=== PATIENT | female | born 1955 | race Caucasian/White ===

== ENCOUNTER 2017-09-20 12:12 | Inpatient (IN) | payer OTHER ==
[~2017-09-20] VITALS: Ht 172.7 cm; Wt 63.0 kg
[~2017-09-20 12:12] MED LIST: ALDACTONE25 MG PO; ALDACTONE50 MG PO; AMBIEN10 M1 PO; AMBIEN10 MG PO; AMITRIPTYLINE H50 MG PO; ATIVAN1 M1 PO; BENTYL10 MG PO; BENTYL20 MG PO; ELAVIL50 MG PO; ERGOCALCIF50000 UNIT PO; ESTRACE0.5 MG PO; ESTRADIOL0.5 MG PO; KLOR-CON M2020 MEQ; KLOR-CON M2020 MEQ PO; LEXAPRO20 MG PO; LOMOTIL TABLET1 EACH PO; LORAZEPAM1 MG PO; MAG-OXIDE400 MG PO; OMEPRAZOLE40 M1 PO; PERCOCET 7.51 TABLET PO; PHENERGAN12.5 M1 PO; POTASSIUM CITR10 MEQ PO; PRILOSEC40 MG PO; PROAIR HFA8.5 GM IH; PROMETHAZINE HC25 M1 PO
[2017-09-20 12:33] LABS: HEMATOCRIT 51.3 % (36.0-46.0); MCH 34.3 PG (29.0-34.0); MCHC 36.5 G/DL (30.0-36.0); MCV 94.1 FL (83-99); MEAN PLAT.VOLUME 10.5 uM^3 (9.5-12.4); PLATELET COUNT 207 K/uL (156-360); RBC DIS.WIDTH-CV 13.5 % (11.8-14.6); RBC DIS.WIDTH-SD 47.3 % (39-53); RED BLOOD COUNT 5.45 M/uL (3.80-5.20)
[2017-09-20 12:42] LABS: CHLORIDE 101 mEq/L (99-109); SODIUM 132 mEq/L (136-147)
[2017-09-20 12:45] LABS: GLUCOSE 159 mg/dL (70-99)
[2017-09-20 12:46] LABS: ANION GAP 24 MEQ/L (2-14)
[2017-09-20 12:47] LABS: TOTAL BILIRUBIN 0.5 mg/dL (0.0-1.0)
[2017-09-20 12:48] LABS: ALKALINE PHOSPHATASE 83 IU/L (3-129); GFR ESTIMATE (CALCULATED) 14 mL/min/
[2017-09-20 12:49] LABS: UREA NITROGEN (BUN) 42 mg/dL (9-23)
[2017-09-20 12:52] LABS: LIPASE 34 U/L (1.0-51.0)
[2017-09-20 12:59] LABS: POTASSIUM 2.2 mEq/L (3.7-5.4)
[2017-09-20 14:13] LABS: MAGNESIUM 1.5 mg/dL (1.3-2.7)
[2017-09-20 17:10] VITALS: BP 149/78
[2017-09-20 17:54] VITALS: BP 149/78
[2017-09-20 19:01] LABS: ANION GAP 15 MEQ/L (2-14); CHLORIDE 109 MEQ/L (99-109); GFR ESTIMATE (CALCULATED) 18 mL/min/; GLUCOSE 127 mg/dL (70-99); POTASSIUM 2.3 MEQ/L (3.7-5.4); SAMPLE HEMOLYSIS CHECK 0; SAMPLE ICTERIC CHECK 0; SAMPLE LIPEMIA CHECK 0; SODIUM 135 MEQ/L (136-147); UREA NITROGEN (BUN) 37 mg/dL (9-23)
[2017-09-20 20:54] LABS: ANION GAP 14 MEQ/L (2-14); CHLORIDE 108 MEQ/L (99-109); GFR ESTIMATE (CALCULATED) 18 mL/min/; GLUCOSE 131 mg/dL (70-99); POTASSIUM 2.4 MEQ/L (3.7-5.4); SAMPLE HEMOLYSIS CHECK 0; SAMPLE ICTERIC CHECK 0; SAMPLE LIPEMIA CHECK 0; SODIUM 134 MEQ/L (136-147); UREA NITROGEN (BUN) 36 mg/dL (9-23)
[2017-09-21] VITALS (7 sets, daily range): BP systolic 97–133; BP diastolic 62–86
[2017-09-21 06:54] LABS: BASOPHIL COUNT 0.1 K/uL (0-0.1); EOSINOPHIL (%) 0.6 % (0-5); EOSINOPHIL COUNT 0.1 K/uL (0-0.3); HEMATOCRIT 39.9 % (36.0-46.0); IMMATURE GRANULOCYTE (%) 0.6 % (0.0-0.7); IMMATURE GRANULOCYTE COUNT 0.1 K/uL; INSTRUMENT ABS NEUTROPHIL CT 6.7 K/uL; LYMPHOCYTE COUNT 1.2 K/uL (1.0-2.8); MCH 33.7 PG (29.0-34.0); MCHC 35.1 G/DL (30.0-36.0); MCV 95.9 FL (83-99); MEAN PLAT.VOLUME 10.6 uM^3 (9.5-12.4); MONOCYTE COUNT 0.6 K/uL (0-0.8); NEUTROPHIL (%) 77.2 % (45-76); NEUTROPHIL COUNT 6.7 K/uL (1.8-6.4); PLATELET COUNT 203 K/uL (156-360); RBC DIS.WIDTH-CV 13.9 % (11.8-14.6); RBC DIS.WIDTH-SD 49.2 % (39-53); WHITE BLOOD COUNT 8.6 K/uL (4.1-10.2)
[2017-09-21 07:03] LABS: RED BLOOD COUNT 4.16 M/uL (3.80-5.20)
[2017-09-21 07:27] LABS: ALKALINE PHOSPHATASE 52 IU/L (3-129); ANION GAP 12 MEQ/L (2-14); CHLORIDE 111 MEQ/L (99-109); DIRECT BILIRUBIN 0.1 mg/dL (0.0-0.3); GFR ESTIMATE (CALCULATED) 21 mL/min/; GLUCOSE 118 mg/dL (70-99); POTASSIUM 2.6 MEQ/L (3.7-5.4); SAMPLE HEMOLYSIS CHECK 0; SAMPLE ICTERIC CHECK 0; SAMPLE LIPEMIA CHECK 0; SODIUM 135 MEQ/L (136-147); TOTAL BILIRUBIN 0.4 MG/DL (0.0-1.0); UREA NITROGEN (BUN) 33 mg/dL (9-23)
[2017-09-21] MEDS ORDERED: PROMETHAZINE12.5 M1 PO ×2 (11:10→11:22)
[2017-09-21] MEDS ORDERED: KLOR-CON20 MEQ PO (11:18)
[2017-09-21] MEDS ORDERED: SPIRONOLACTONE50 MG PO (11:19)
[2017-09-21] MEDS ORDERED: EPIPEN ADU0.3 MG/0.3 IM (11:19)
[2017-09-21 18:51] LABS: ANION GAP 10 MEQ/L (2-14); CHLORIDE 111 MEQ/L (99-109); GFR ESTIMATE (CALCULATED) 21 mL/min/; GLUCOSE 120 mg/dL (70-99); POTASSIUM 2.7 MEQ/L (3.7-5.4); SAMPLE HEMOLYSIS CHECK 0; SAMPLE ICTERIC CHECK 0; SAMPLE LIPEMIA CHECK 0; SODIUM 133 MEQ/L (136-147); UREA NITROGEN (BUN) 24 mg/dL (9-23)
[2017-09-22 05:59] LABS: BASOPHIL COUNT 0.1 K/uL (0-0.1); EOSINOPHIL (%) 2.8 % (0-5); EOSINOPHIL COUNT 0.2 K/uL (0-0.3); HEMATOCRIT 38.3 % (36.0-46.0); IMMATURE GRANULOCYTE (%) 0.7 % (0.0-0.7); INSTRUMENT ABS NEUTROPHIL CT 4.2 K/uL; MCH 34.1 PG (29.0-34.0); MCHC 34.5 G/DL (30.0-36.0); MEAN PLAT.VOLUME 10.2 uM^3 (9.5-12.4); MONOCYTE (%) 9.1 % (3-12); MONOCYTE COUNT 0.6 K/uL (0-0.8); NEUTROPHIL (%) 69.4 % (45-76); NEUTROPHIL COUNT 4.2 K/uL (1.8-6.4); PLATELET COUNT 189 K/uL (156-360); RBC DIS.WIDTH-CV 14.3 % (11.8-14.6); RBC DIS.WIDTH-SD 52.5 % (39-53); RED BLOOD COUNT 3.87 M/uL (3.80-5.20); WHITE BLOOD COUNT 6.1 K/uL (4.1-10.2)
[2017-09-22 06:35] LABS: ANION GAP 10 MEQ/L (2-14); CHLORIDE 116 MEQ/L (99-109); GFR ESTIMATE (CALCULATED) 23 mL/min/; GLUCOSE 100 mg/dL (70-99); MAGNESIUM 1.4 mg/dl (1.3-2.7); SAMPLE HEMOLYSIS CHECK 0; SAMPLE ICTERIC CHECK 0; SAMPLE LIPEMIA CHECK 0; SODIUM 136 MEQ/L (136-147); UREA NITROGEN (BUN) 21 mg/dL (9-23)
[2017-09-22 06:51] VITALS: BP 118/58
[2017-09-22 07:55] LABS: BASE EXCESS -16.9 mEq/L (-3 to +3); BICARBONATE 10.2 mEq/L (22-26); CARBOXY HGB 1.9 % (0-5); METHEMOGLOBIN 1.5 % (0-1.5); PCO2 28 mm Hg (35-45); PO2 112 mm Hg (80-100)
[2017-09-22 07:59] LABS: SITE LR; pH 7.17 (7.35-7.45)
[2017-09-22 08:01] LABS: COMMENTS - BLOOD GASES A+C+
[2017-09-22 08:02] LABS: DEVICE RA; FI02 21 %; TOTAL RESP RATE 20 resp/min
[2017-09-22 14:22] LABS: ANION GAP 9 MEQ/L (2-14); CHLORIDE 111 MEQ/L (99-109); GFR ESTIMATE (CALCULATED) 24 mL/min/; GLUCOSE 91 mg/dL (70-99); POTASSIUM 3.1 MEQ/L (3.7-5.4); SAMPLE HEMOLYSIS CHECK 0; SAMPLE ICTERIC CHECK 0; SAMPLE LIPEMIA CHECK 0; SODIUM 132 MEQ/L (136-147); UREA NITROGEN (BUN) 16 mg/dL (9-23)
[2017-09-22 15:16] VITALS: BP 119/58
[2017-09-23 00:12] VITALS: BP 130/66
[2017-09-23 00:44] LABS: C DIFF TOXIN NEGATIVE (NEGATIVE)
[2017-09-23 00:55] LABS: PROBE CHECK PASS; SPECIMEN PROCESSING CONTROL PASS
[2017-09-23 06:48] LABS: BASOPHIL COUNT 0.1 K/uL (0-0.1); EOSINOPHIL (%) 2.8 % (0-5); EOSINOPHIL COUNT 0.2 K/uL (0-0.3); HEMATOCRIT 36.9 % (36.0-46.0); IMMATURE GRANULOCYTE (%) 0.7 % (0.0-0.7); MCH 33.6 PG (29.0-34.0); MCHC 34.7 G/DL (30.0-36.0); MCV 96.9 FL (83-99); MEAN PLAT.VOLUME 9.9 uM^3 (9.5-12.4); MONOCYTE (%) 7.5 % (3-12); MONOCYTE COUNT 0.4 K/uL (0-0.8); NEUTROPHIL (%) 70.3 % (45-76); PLATELET COUNT 213 K/uL (156-360); RBC DIS.WIDTH-CV 14.1 % (11.8-14.6); RBC DIS.WIDTH-SD 50.3 % (39-53); RED BLOOD COUNT 3.81 M/uL (3.80-5.20); WHITE BLOOD COUNT 5.8 K/uL (4.1-10.2)
[2017-09-23 07:00] VITALS: BP 113/55
[2017-09-23 07:15] LABS: ALKALINE PHOSPHATASE 53 IU/L (3-129); ANION GAP 8 MEQ/L (2-14); CHLORIDE 119 MEQ/L (99-109); GFR ESTIMATE (CALCULATED) 23 mL/min/; GLUCOSE 94 mg/dL (70-99); POTASSIUM 3.5 MEQ/L (3.7-5.4); SAMPLE HEMOLYSIS CHECK 0; SAMPLE ICTERIC CHECK 0; SAMPLE LIPEMIA CHECK 0; UREA NITROGEN (BUN) 14 mg/dL (9-23)
[2017-09-23 07:17] LABS: SODIUM 141 MEQ/L (136-147); TOTAL BILIRUBIN 0.6 MG/DL (0.0-1.0)
[2017-09-23] MEDS ORDERED: OYSTER SHELL 51 EACH PO (11:56)
[2017-09-23] MEDS ORDERED: SOD CITRATE-CI473 ML PO (11:56)
== END 2017-09-23 13:16 | disposition home or self-care (01) | DRG 683 ==
LOC: EME 12:12 → 5SOUTH 14:38 → EDOF 14:38 → ENRESERV 14:39 → 5SOUTH 16:46 → ENPENDDIS 09-23 → 5SOUTH 09-23 13:16
PROVIDERS: Emergency Medicine; Hospitalist; Internal Medicine Nephrology
DX: N17.9 Acute kidney failure, unspecified (principal); K52.9 Noninfective gastroenteritis and colitis, unspecified; E87.6 Hypokalemia; E83.42 Hypomagnesemia; E83.51 Hypocalcemia; E86.0 Dehydration; E87.2 Acidosis; F17.210 Nicotine dependence, cigarettes, uncomplicated; G89.29 Other chronic pain; I10 Essential (primary) hypertension; K21.9 Gastro-esophageal reflux disease without esophagitis; K50.90 Crohn's disease, unspecified, without complications; F32.9 Major depressive disorder, single episode, unspecified; F41.9 Anxiety disorder, unspecified; G43.909 Migraine, unspecified, not intractable, without status migrainosus; Z86.73 Personal history of transient ischemic attack (TIA), and cerebral infarction without residual deficits; Z90.49 Acquired absence of other specified parts of digestive tract; Z88.1 Allergy status to other antibiotic agents
CPT/HCPCS: 36600; 74176; 76770; 80048; 80048 91; 80053; 80076; 81003; 82800; 82803; 83605; 83690; 83735; 83785 90; 84100; 85025; 85027; 87493; 93005; 99202; 99281; 99285; C9113; J0744; J1170; J1644; J2270; J2405; J2550; J3475; J3480; J7030; Q0169; S0030

== ENCOUNTER 2018-03-17 07:25 | Inpatient (IN) | payer OTHER ==
[~2018-03-17] VITALS: Ht 172.7 cm; Wt 65.2 kg
[~2018-03-17 07:25] MED LIST changes: +EPIPEN ADU0.3 MG/0.3 IM; +KLOR-CON20 MEQ PO; +OYSTER SHELL 51 EACH PO; +PROMETHAZINE12.5 M1 PO; +SOD CITRATE-CI473 ML PO; +SPIRONOLACTONE50 MG PO
[2018-03-17 07:59] LABS: HEMATOCRIT 45.5 % (36.0-46.0); HEMOGLOBIN 16.9 G/DL (11.9-15.5); MCHC 37.1 G/DL (30.0-36.0); MCV 91.5 FL (83-99); PLATELET COUNT 233 K/uL (156-360); RBC DIS.WIDTH-CV 15.2 % (11.8-14.6); RED BLOOD COUNT 4.97 M/uL (3.80-5.20)
[2018-03-17 08:28] LABS: TROP-I INTERPRETATION NEGATIVE; TROPONIN-I < 0.01 ng/mL (0.0-0.30)
[2018-03-17 09:02] LABS: APPEARANCE CLEAR ((CLEAR)); BILIRUBIN NEGATIVE; BLOOD MODERATE; COLOR STRAW ((YELLOW)); GLUCOSE (STRIP) NEGATIVE; KETONES NEGATIVE; LEUKOCYTES NEGATIVE; NITRITE NEGATIVE; PROTEIN (STRIP) 30; SPECIFIC GRAVITY 1.005 (1.000-1.030); UROBILINOGEN 0.2 MG/DL (0.2-1.0)
[2018-03-17 09:09] LABS: BACTERIA RARE /HPF; EPITHELIAL CELLS 1+ /HPF; MUCUS TRACE /LPF; RED BLOOD CELLS 0-5 /HPF (0-5); UCUL ADDED? NO; WHITE BLOOD CELLS 0-5 /HPF (0-5)
[2018-03-17] MEDS ORDERED: ADVIL,NUPRIN,M200 MG PO (10:28)
[2018-03-17] MEDS ORDERED: VITAMIN D5000 UNI1 PO (10:28)
[2018-03-17] MEDS ORDERED: ACETAMINOPHEN325 M1 PO (10:29)
[2018-03-17] MEDS ORDERED: PROMETHAZINE12.5 M1 PO (10:31)
[2018-03-17 10:41] LABS: CHLORIDE 111 mEq/L (99-109); SODIUM 135 mEq/L (136-147)
[2018-03-17 10:43] LABS: GLUCOSE 112 mg/dL (70-99)
[2018-03-17 10:47] LABS: CREATININE 2.4 mg/dL (0.6-1.3); GFR ESTIMATE (CALCULATED) 22 mL/min/
[2018-03-17 10:48] LABS: UREA NITROGEN (BUN) 26 mg/dL (9-23)
[2018-03-17 10:49] LABS: POTASSIUM 1.4 mEq/L (3.7-5.4)
[2018-03-17 10:51] LABS: TROP-I INTERPRETATION NEGATIVE; TROPONIN-I 0.02 ng/mL (0.0-0.30)
[2018-03-17 15:03] LABS: CHLORIDE 114 mEq/L (99-109); SODIUM 137 mEq/L (136-147)
[2018-03-17 15:04] LABS: GLUCOSE 136 mg/dL (70-99)
[2018-03-17 15:05] LABS: POTASSIUM 1.6 mEq/L (3.7-5.4)
[2018-03-17 15:08] LABS: CREATININE 2.1 mg/dL (0.6-1.3); GFR ESTIMATE (CALCULATED) 25 mL/min/
[2018-03-17 15:09] LABS: UREA NITROGEN (BUN) 24 mg/dL (9-23)
[2018-03-17 15:28] VITALS: BP 114/56
[2018-03-17 16:51] VITALS: BP 135/62
[2018-03-17 18:47] LABS: CHLORIDE 114 MEQ/L (99-109); GFR ESTIMATE (CALCULATED) 27 mL/min/; GLUCOSE 138 mg/dL (70-99); SODIUM 136 MEQ/L (136-147); UREA NITROGEN (BUN) 23 mg/dL (9-23)
[2018-03-17 18:49] LABS: POTASSIUM 1.6 MEQ/L (3.7-5.4)
[2018-03-17 21:12] VITALS: BP 114/73
[2018-03-17 22:12] LABS: CHLORIDE 113 MEQ/L (99-109); CREATININE 1.9 MG/DL (0.6-1.3); GFR ESTIMATE (CALCULATED) 29 mL/min/; GLUCOSE 120 mg/dL (70-99); SODIUM 136 MEQ/L (136-147); UREA NITROGEN (BUN) 22 mg/dL (9-23)
[2018-03-17 22:13] LABS: POTASSIUM 1.7 MEQ/L (3.7-5.4)
[2018-03-18 00:01] VITALS: BP 117/72
[2018-03-18 01:10] LABS: CHLORIDE 116 mEq/L (99-109); SODIUM 138 mEq/L (136-147)
[2018-03-18 01:11] LABS: GLUCOSE 140 mg/dL (70-99)
[2018-03-18 01:15] LABS: CREATININE 1.9 mg/dL (0.6-1.3); GFR ESTIMATE (CALCULATED) 29 mL/min/
[2018-03-18 01:16] LABS: UREA NITROGEN (BUN) 22 mg/dL (9-23)
[2018-03-18 01:17] LABS: POTASSIUM 1.7 mEq/L (3.7-5.4)
[2018-03-18 04:20] VITALS: BP 115/70
[2018-03-18 07:02] LABS: CHLORIDE 114 MEQ/L (99-109); CREATININE 1.8 MG/DL (0.6-1.3); GFR ESTIMATE (CALCULATED) 30 mL/min/; GLUCOSE 127 mg/dL (70-99); POTASSIUM 2.1 MEQ/L (3.7-5.4); SODIUM 139 MEQ/L (136-147); UREA NITROGEN (BUN) 22 mg/dL (9-23)
[2018-03-18 07:35] VITALS: BP 135/85
[2018-03-18 12:55] VITALS: BP 129/81
[2018-03-18 14:15] LABS: BASOPHIL (%) 0.5 % (0-1); BASOPHIL COUNT 0.1 K/uL (0-0.1); EOSINOPHIL (%) 0 % (0-5); HEMATOCRIT 38.1 % (36.0-46.0); HEMOGLOBIN 14.3 G/DL (11.9-15.5); IMMATURE GRANULOCYTE (%) 0.4 % (0.0-0.7); LYMPHOCYTE COUNT 0.6 K/uL (1.0-2.8); MCH 33.6 PG (29.0-34.0); MCHC 37.5 G/DL (30.0-36.0); MCV 89.4 FL (83-99); MONOCYTE (%) 3.5 % (3-12); MONOCYTE COUNT 0.5 K/uL (0-0.8); NEUTROPHIL (%) 91.6 % (45-76); NEUTROPHIL COUNT 14.3 K/uL (1.8-6.4); PLATELET COUNT 236 K/uL (156-360); RBC DIS.WIDTH-SD 48.4 % (39-53); RED BLOOD COUNT 4.26 M/uL (3.80-5.20); WHITE BLOOD COUNT 15.6 K/uL (4.1-10.2)
[2018-03-18 14:38] LABS: CHLORIDE 113 MEQ/L (99-109); CREATININE 1.7 MG/DL (0.6-1.3); GFR ESTIMATE (CALCULATED) 32 mL/min/; GLUCOSE 146 mg/dL (70-99); POTASSIUM 1.8 MEQ/L (3.7-5.4); SODIUM 138 MEQ/L (136-147); UREA NITROGEN (BUN) 19 mg/dL (9-23)
[2018-03-18 19:32] VITALS: BP 126/74
[2018-03-18 23:55] VITALS: BP 106/62
[2018-03-19 04:02] VITALS: BP 116/68
[2018-03-19 08:21] VITALS: BP 125/64
[2018-03-19 10:06] LABS: CHLORIDE 110 MEQ/L (99-109); CREATININE 1.6 MG/DL (0.6-1.3); GFR ESTIMATE (CALCULATED) 35 mL/min/; GLUCOSE 159 mg/dL (70-99); SODIUM 137 MEQ/L (136-147); UREA NITROGEN (BUN) 13 mg/dL (9-23)
[2018-03-19 10:12] LABS: POTASSIUM 2.2 MEQ/L (3.7-5.4)
[2018-03-19 12:08] VITALS: BP 123/75
[2018-03-19 15:31] VITALS: BP 119/75
[2018-03-19 17:25] LABS: CHLORIDE 111 MEQ/L (99-109); CREATININE 1.6 MG/DL (0.6-1.3); GFR ESTIMATE (CALCULATED) 35 mL/min/; POTASSIUM 2.5 MEQ/L (3.7-5.4); SODIUM 136 MEQ/L (136-147); UREA NITROGEN (BUN) 12 mg/dL (9-23)
[2018-03-19 17:37] LABS: GLUCOSE 97 mg/dL (70-99)
[2018-03-19 20:53] VITALS: BP 111/73
[2018-03-20] VITALS (7 sets, daily range): BP systolic 107–124; BP diastolic 68–79
[2018-03-20 06:03] LABS: CHLORIDE 116 MEQ/L (99-109); CREATININE 1.7 MG/DL (0.6-1.3); GFR ESTIMATE (CALCULATED) 32 mL/min/; GLUCOSE 92 mg/dL (70-99); SODIUM 142 MEQ/L (136-147); UREA NITROGEN (BUN) 11 mg/dL (9-23)
[2018-03-20 13:08] LABS: C DIFF TOXIN NEGATIVE (NEGATIVE)
[2018-03-21] VITALS (7 sets, daily range): BP systolic 106–124; BP diastolic 60–77
[2018-03-21 06:45] LABS: BASOPHIL (%) 0.7 % (0-1); BASOPHIL COUNT 0.1 K/uL (0-0.1); EOSINOPHIL (%) 2.2 % (0-5); EOSINOPHIL COUNT 0.2 K/uL (0-0.3); HEMATOCRIT 32.3 % (36.0-46.0); IMMATURE GRANULOCYTE (%) 0.5 % (0.0-0.7); LYMPHOCYTE (%) 19.3 % (15-42); LYMPHOCYTE COUNT 1.7 K/uL (1.0-2.8); MCH 33.3 PG (29.0-34.0); MONOCYTE (%) 6.7 % (3-12); MONOCYTE COUNT 0.6 K/uL (0-0.8); NEUTROPHIL (%) 70.6 % (45-76); NEUTROPHIL COUNT 6.1 K/uL (1.8-6.4); PLATELET COUNT 223 K/uL (156-360); RBC DIS.WIDTH-SD 55.6 % (39-53); WHITE BLOOD COUNT 8.6 K/uL (4.1-10.2)
[2018-03-21 06:51] LABS: HEMOGLOBIN 11.3 G/DL (11.9-15.5); MCV 95.3 FL (83-99); RED BLOOD COUNT 3.39 M/uL (3.80-5.20)
[2018-03-21 06:55] LABS: CHLORIDE 117 MEQ/L (99-109); CREATININE 1.5 MG/DL (0.6-1.3); GFR ESTIMATE (CALCULATED) 38 mL/min/; GLUCOSE 93 mg/dL (70-99); MAGNESIUM 1.1 mg/dl (1.3-2.7); PHOSPHORUS 2.4 mg/dL (2.5-4.9); POTASSIUM 3.2 MEQ/L (3.7-5.4); SODIUM 143 MEQ/L (136-147); UREA NITROGEN (BUN) 14 mg/dL (9-23)
[2018-03-21 15:27] LABS: CHLORIDE 110 MEQ/L (99-109); CREATININE 1.6 MG/DL (0.6-1.3); GFR ESTIMATE (CALCULATED) 35 mL/min/; GLUCOSE 122 mg/dL (70-99); POTASSIUM 3.3 MEQ/L (3.7-5.4); SODIUM 139 MEQ/L (136-147); UREA NITROGEN (BUN) 15 mg/dL (9-23)
[2018-03-21 15:34] LABS: MAGNESIUM 2.2 mg/dl (1.3-2.7)
[2018-03-22 04:02] VITALS: BP 131/75
[2018-03-22 07:18] VITALS: BP 116/64
[2018-03-22 09:43] LABS: MCH 33.3 PG (29.0-34.0); MCHC 33.3 G/DL (30.0-36.0); PLATELET COUNT 240 K/uL (156-360); RBC DIS.WIDTH-CV 16.6 % (11.8-14.6); RBC DIS.WIDTH-SD 60.5 % (39-53); WHITE BLOOD COUNT 8.5 K/uL (4.1-10.2)
[2018-03-22 10:03] LABS: CHLORIDE 115 MEQ/L (99-109); CREATININE 1.5 MG/DL (0.6-1.3); GFR ESTIMATE (CALCULATED) 38 mL/min/; GLUCOSE 155 mg/dL (70-99); POTASSIUM 3.7 MEQ/L (3.7-5.4); SODIUM 140 MEQ/L (136-147); UREA NITROGEN (BUN) 17 mg/dL (9-23)
[2018-03-22 11:43] VITALS: BP 128/77
[2018-03-22] MEDS ORDERED: MAG-OXIDE400 MG PO (12:15)
[2018-03-22] MEDS ORDERED: NABI650T PO (12:16)
[2018-03-22 16:26] VITALS: BP 121/80
== END 2018-03-22 18:23 | disposition home or self-care (01) | DRG 641 ==
LOC: EME 07:25 → EDOF 12:14 → 4EAST 12:14 → ENRESERV 12:16 → 4EAST 15:02 → ENRESERV 03-20 11:13 → 5SOUTH 03-20 15:44 → ENPENDDIS 03-22 15:01 → 5SOUTH 03-22 18:23
PROVIDERS: Internal Medicine; Internal Medicine Nephrology; Nurse Practitioner Adult Health; Nurse Practitioner Family
DX: E87.6 Hypokalemia (principal); E87.2 Acidosis; K91.2 Postsurgical malabsorption, not elsewhere classified; K50.018 Crohn's disease of small intestine with other complication; N18.4 Chronic kidney disease, stage 4 (severe); E83.42 Hypomagnesemia; S70.361A Insect bite (nonvenomous), right thigh, initial encounter; W57.XXXA Bitten or stung by nonvenomous insect and other nonvenomous arthropods, initial encounter; S00.11XA Contusion of right eyelid and periocular area, initial encounter; W10.9XXA Fall (on) (from) unspecified stairs and steps, initial encounter; K21.9 Gastro-esophageal reflux disease without esophagitis; Z72.0 Tobacco use; Z86.73 Personal history of transient ischemic attack (TIA), and cerebral infarction without residual deficits; Z90.49 Acquired absence of other specified parts of digestive tract
CPT/HCPCS: 70450; 70486; 71045; 71046; 72125; 73502; 74176; 80048; 80048 91; 81003; 83735; 84100; 84132; 84132 91; 84484; 85025; 85027; 87493; 93005; 94640; 94640 76; 99202; 99281; 99285; J1644; J2405; J2765; J3475; J3480; J7030; J7120; Q0169